=== PATIENT | male | born 1945 | race Caucasian/White ===

== ENCOUNTER → 2017-03-21 | Outpatient (CLI) | payer MEDICARE, OTHER ==
--- NOTE | ~2017-03-21 | CT57 ---
[facility] A Service of [facility] RADIOLOGY TEXT RESULTS PATIENT: ANTONIA PONCE JR LOCATION: [facility] : 49 UNIT #: [id number] AGE: [address]: Isaias Kirkpatrick MD SEX: M ORDER DR: [id number] [facility]. [place], [place] [address] [id number] O MR#: [id number] [facility] #: [id number] NAME: ANTONIA PONCE : 1945 SEX: M STUDY DATE/TIME: 03/21/2017 9:05 UNIT: [facility] ROOM: STUDY DESCRIPTION: CT Chest Wo Cont Attending Physician: Josh Kirkpatrick M.D. Referring Physician: Josh Kirkpatrick M.D. Ordering Physician: Josh Kirkpatrick M.D. Primary Care Physician: Nirali Cox M.D. MEDICAL IMAGING REPORT This report is preliminary unless electronic signature is present EXAM CT chest without contrast INDICATION Coughing for 3 years, COPD. TECHNIQUE CT chest performed without contrast. Coronal and sagittal reformatted images were obtained. This CT examination was performed with one or more of the following radiation dose reduction techniques: automatic exposure control, adjustment of mA and/or kV according to patient size, and iterative reconstruction. COMPARISON 10/01/2008. FINDINGS Emphysema. There is bronchial wall thickening in the lower lobes. This may indicate bronchitis. There is a micronodule in the base of the left lower lobe on image [address] the [address] from 2008 but the exact chronicity is uncertain. This could be followed in 6-12 months to document stability. Linear band of scarring or atelectasis within the right lower lobe. No suspicious lymphadenopathy. No pleural effusion. Limited imaging of the upper abdomen shows a stable left adrenal gland adenoma. The bone windows are unremarkable. IMPRESSION 1. Bilateral bronchial wall thickening in the lower lobes likely due to bronchitis. 2. Tiny micronodule in the left lower lobe is nonspecific. This could be followed in 6-12 months to document stability. [facility] A Service [facility] RADIOLOGY TEXT RESULTS PATIENT: ANTONIA PONCE JR LOCATION: [facility] : 49 UNIT #: [id number] AGE: [address]: Isaias Kirkpatrick MD SEX: M ORDER DR: Dictated by... Gabo Prince M.D. THIS IS AN ELECTRONICALLY VERIFIED REPORT Gabo Prince M.D. at 03/27/2017 11:20 AM SHABNAM/arun TD: 03/22/2017 12:40 JOB #: [id number] MEDICAL IMAGING REPORT Page 1 of 1 COPY
== END | disposition home or self-care (01) ==
LOC: CCAT 08:45
DX: J44.9 Chronic obstructive pulmonary disease, unspecified (principal); G47.34 Idiopathic sleep related nonobstructive alveolar hypoventilation; J98.09 Other diseases of bronchus, not elsewhere classified
CPT/HCPCS: 71250